=== PATIENT | male | born 1990 | race Caucasian/White ===

== ENCOUNTER 2018-05-18 20:57 | Emergency (ER) | payer OTHER ==
[2018-05-18] MEDS: LIDOCAINE/MYLANTA 40 ML BTL PO (22:06)
[2018-05-18] MEDS: METOCLOPRAMIDE 10 MG INJ IM (22:06)
== END 2018-05-18 23:00 | disposition home or self-care (01) ==
LOC: FTE 20:57
DX: R10.13 Epigastric pain (principal); Z87.891 Personal history of nicotine dependence
CPT/HCPCS: 96372; 99284-25